=== PATIENT | male | born 1940 | race Caucasian/White ===

== ENCOUNTER 2019-01-06 15:00 | Outpatient (RCR) | payer MEDICARE, BC ==
[~2019-01-06 15:00] MED LIST: FLEXERIL 1010 MG/TAB PO; INSLANT SQ; NORCO 325 MG-51 TAB PO; NOVOLOG FLEX100 U/ML SQ; RELAFEN 50500 MG/TAB PO; TRICOR 48MG48 MG PO; ZOCOR 20MG20 MG PO
== END 2019-01-13 | disposition still patient (30) ==
LOC: WSC
DX: M17.0 Bilateral primary osteoarthritis of knee (principal)

== ENCOUNTER → 2019-10-29 | Emergency (ER) | payer MEDICARE, BC ==
[~2019-10-29] VITALS: Ht 175.3 cm; Wt 93.2 kg
[2019-10-29 14:43] VITALS: TEMP 97.5
[2019-10-29 15:24] LABS: BASO # 0.1 (0.0-0.2); BASO % 0.4 % (0.0-2.0); EOS # 0.1 (0.0-0.7); EOS % 0.7 % (0-4.0); GRAN # 9.3 (1.4-6.5); GRAN % 79.5 % (42.2-75.2); HEMATOCRIT 44.2 % (42.0-52.0); HEMOGLOBIN 14.5 g/dl (13.5-18.0); LYMPH # 1.5 (1.2-3.4); LYMPH % 12.7 % (20.0-51.0); MEAN CELL VOLUME 95 fl (80.0-100.0); MEAN CORPUSCULAR HEMOGLOBIN 31 pg (27.0-31.0); MEAN CORPUSCULAR HGB CONC 33 g/dl (33.0-37.0); MEAN PLATELET VOLUME 10.3 fl (7.4-10.4); MONO # 0.8 (0.1-0.6); MONO % 6.4 % (1.7-9.3); PLATELET COUNT 213 K/mm3 (130-400); RED BLOOD COUNT 4.67 M/mm3 (4.20-5.60); REDCELL DISTRIBUTION WIDTH-CV 13.2 % (11.5-14.5)
[2019-10-29 15:33] LABS: PROTHROMBIN TIME 11.6 SECONDS (9.7-12.8)
[2019-10-29 15:34] LABS: ALBUMIN 3.9 gm/dL (3.5-5.0); BILIRUBIN,TOTAL 0.5 mg/dL (0.0-1.0); CREATININE, serum 0.78 (0.66-1.25); POTASSIUM 4.3 mmol/L (3.4-5.0); TOTAL PROTEIN 7.1 gm/dL (6.4-8.2)
[2019-10-29 15:44] VITALS: BP 127/77; PULSE 91
[2019-10-29 15:44] LABS: TROPONIN-I 0.014 ng/mL (0.000-0.035)
[2019-10-29 16:56] LABS: COLLECTION METHOD CLEAN CATCH
[2019-10-29 17:02] LABS: PH 6 (5-8); SQUAMOUS EPITHELIAL None Seen /hpf; URINE APPEARANCE Clear; URINE BACTERIA None Seen /hpf; URINE BILIRUBIN Negative (NEGATIVE); URINE BLOOD Negative (NEGATIVE); URINE COLOR Yellow; URINE GLUCOSE Negative (NEGATIVE); URINE KETONE Negative (NEGATIVE); URINE LEUKOCYTE ESTERASE Negative (NEGATIVE); URINE NITRATE Negative (NEGATIVE); URINE PROTEIN(semi-quant) Negative (NEGATIVE); URINE RBC 0-2 /hpf; URINE UROBILINOGEN Negative (NEGATIVE); URINE WBC 0-2 /hpf
== END ==
LOC: COL.ER 14:32
PROVIDERS: Emergency Medicine
DX: S00.03XA Contusion of scalp, initial encounter (principal); E11.649 Type 2 diabetes mellitus with hypoglycemia without coma; Z79.4 Long term (current) use of insulin; Z90.89 Acquired absence of other organs; Z23 Encounter for immunization; W19.XXXA Unspecified fall, initial encounter; Y92.009 Unspecified place in unspecified non-institutional (private) residence as the place of occurrence of the external cause
CPT/HCPCS: J7030

== ENCOUNTER 2019-12-22 09:49 | Inpatient (IN) | payer MEDICARE, BC ==
[~2019-12-22] VITALS: Ht 172.8 cm; Wt 91.9 kg
[~2019-12-22 09:49] MED LIST changes: +ASPIRIN E.C. 8181 MG PO; +BRILINTA90 MG PO; +GLUCOPHAGE500 MG/TAB PO; +GLUCOSAMINE & C1 CA2 PO; +LIPITOR 80MG80 MG PO; +MASON NATURAL2000 IU PO; +MULTIVITAMIN SEN PO
[2020-01-20] VITALS (7 sets, daily range): BP systolic 92–139; BP diastolic 49–67; PULSE 47–67; TEMP 97.3–97.9
[2020-01-20] MEDS ORDERED: EFFIENT10 MG (10:04)
--- NOTE | 2020-01-20 15:00 | NUR ---
PATIENT BACK IN ROOM 328 POST OP LTK. A&O. NOTED HYPOTENSION IN MID 90'S SYSTOLIC AND LOW 50'S DIASTOLIC. ALL OTHER VSS. DENIES PAIN IN LLE. PATIENT IS UNABLE TO MOVE BLE AT THIS TIME. LTK DRESSING IS CD&I WITH BULKY ACEWRAP AND ICE PACK INPLACE. TEDS TO RLE. SCD'S TO BLE. POSITIVE PEDAL PULSES TO BLE. HEAD TO TOE ASSESSMENT WNL. NO C/O N/V. LIQUIDS AT BEDSIDE. IV FLUIDS INFUSING INTO LEFT FORARM IV. AT BEDSIDE. ORIENTED TO ROOM. CALL LIGHT IN REACH. NO OTHER NEEDS AT THIS TIME.
--- NOTE | 2020-01-20 20:00 | NUR ---
Pt ambulates in hallway to joint nurses station, becomes dizzy and was wheeled back to his room on rolling walker with seat. Assisted to bed with one staff and gait belt. Is alert and oriented x4. IVF infusing to left forearm without problem.
--- NOTE | 2020-01-20 20:15 | NUR ---
Takes HS meds including Oxycodone 10mg po for pain to left knee.
--- NOTE | 2020-01-20 21:30 | NUR ---
Pt assisted to BR with walker and gait belt and one assist. [place] like he needed to have a BM, did urinate on the floor of his room when getting up. Pt unsuccessful with BM and assisted back to bed.
--- NOTE | 2020-01-20 22:15 | NUR ---
Medicated with Tramadol 50mg po for pain to left knee.
--- NOTE | 2020-01-20 22:30 | NUR ---
Pt calls for help changing bed, had urinated in bed and stated "everyone was laughing out there and didn't want to help me". Assisted with changing linens by staff and re-oriented at this time.
[2020-01-21] VITALS (7 sets, daily range): BP systolic 119–158; BP diastolic 55–81; PULSE 87–121; TEMP 97.5–99.1
--- NOTE | 2020-01-21 00:30 | NUR ---
Pt using urinal at bedside, voids 400cc without problem.
--- NOTE | 2020-01-21 03:10 | NUR ---
PT SITS AT SIDE OF BED, WANTS TO USE THE BATHROOM, UNABLE TO BEAR WT FOR LONG PERIOD OF TIME. ASSISTED TO BED WITH 2 STAFF. USES URINAL IN BED.
--- NOTE | 2020-01-21 05:00 | NUR ---
Has been using urinal at bedside. Scheduled pain meds given.
--- NOTE | 2020-01-21 07:14 | NUR ---
PT RESTING IN BED. DR. READ ROUNDED AND PLAN ON DC TOMMOROW. DRESSING TO LEFT KNEE CDI. ICE AND WATER REFRESHED PER PT REQUEST. BREAKFAST TRAY GIVEN.
[2020-01-21 07:28] LABS: HEMATOCRIT 40.1 % (42.0-52.0); HEMOGLOBIN 13.3 g/dl (13.5-18.0)
--- NOTE | 2020-01-21 09:31 | NUR ---
PT RESTNG IN BED. TOLERATING PO INTAKE WELL. LUNGS CTA, BOWEL SOUNDS PRESENT. DRESSING TO LEFT KNEE CDI WITH VERNELL WRAP OVER DRESSING. AT BEDSIDE.
--- NOTE | 2020-01-21 15:22 | NUR ---
SW met with the patient and his to discuss discharge plan. The patient lives in [place] with his , Reba (ph#[phone]), and son. He reports independence with ADLs and has a rolaider, walker, cane, and crutches. The patient's PCP is Dr. Maria Teresa Rodriguez and he receives his medications at [facility]. He reports no difficulties obtaining his meds. The patient has a Living Will in [facility]. The patient states that he does have a DPOA-HC and that is daughter, Mayte Marin (ph#[phone]), is his DPOA-HC. The patient plans to return home with his and receive outpatient PT at [facility] upon discharge. No additional needs at this time.
--- NOTE | 2020-01-22 01:00 | NUR ---
Pt was returning from bathroom, became dizzy and had vagal episode. PCT was able to place pt in the seat of his rolling walker. Assisted to bed with 2 staff. Pt had been in the bathroom trying to have a BM prior to episode. SS=811. Pt rouses easily once in bed.
[2020-01-22 03:24] VITALS: BP 158/67; PULSE 108; TEMP 97.5
--- NOTE | 2020-01-22 06:00 | NUR ---
NO FURTHER EPISODES OF WEAKNESS. DENIES NEED FOR PAIN MEDS AT THIS TIME.
[2020-01-22 07:38] VITALS: BP 146/76; PULSE 91; TEMP 98.9
--- NOTE | 2020-01-22 08:50 | NUR ---
Patient in bed, spouse at bedside. States upset stomach, feels distended; passing gas, no BM yet. Milk of mag given per orders. Aquacel to left knee is CDI. States pain to left knee /, medications given per orders. Philippe hose and SCDs to BLE. Denies further needs at this time. Will continue to monitor.
--- NOTE | 2020-01-22 10:34 | NUR ---
Contactdonovan ESCOBEDO per Dr. Luis, patient will need placement for discharge.
[2020-01-22 11:16] VITALS: BP 168/74; PULSE 94; TEMP 97.7
--- NOTE | 2020-01-22 11:21 | NUR ---
Dr. Luis in to see patient.
--- NOTE | 2020-01-22 11:37 | NUR ---
The patient may be needing post acute rehab. Public Relations Analyst met with the patient and the patient's to discuss Medicare.gov's list of post acute rehab. The first choice is [facility] and second choice is [facility]. Referrals sent. Will continue to monitor.
--- NOTE | 2020-01-22 12:15 | NUR ---
PT in with patient.
--- NOTE | 2020-01-22 12:33 | NUR ---
Rayna from [facility] reports they can accept the patient for post acute rehab.
[2020-01-22] MEDS ORDERED: XARELTO10 MG PO (13:43)
[2020-01-22] MEDS ORDERED: SENOKOT S 50 MG1 TAB PO (13:44)
[2020-01-22] MEDS ORDERED: NORCO 325 MG-7.1 TAB PO (13:44)
[2020-01-22] MEDS ORDERED: ULTRAM 50MG TAB50 MG PO (13:44)
--- NOTE | 2020-01-22 14:40 | NUR ---
Contacted Dr. Luis, patient ambulated <100 ft with Pt. Would like to discharge home.
--- NOTE | 2020-01-22 15:21 | NUR ---
The patient began doing well with physical therapy and Dr. Luis released him to be discharge home today, 01/21. There are no additional needs at this time.
--- NOTE | 2020-01-22 15:30 | NUR ---
Discharge education provided to patient and spouse. Educated on dressing and signs and symptoms of infection. Educated on when to call provider and follow up appointment. Educated on all new meds. All questions answered. Denies further needs at this time. Patient dressed independently. INT discontinued, catheter tip intact. Patient out by wheelchair with surgical staff and spouse.
== END 2020-01-22 15:30 | disposition home or self-care (01) | DRG 470 ==
LOC: JCC 01-20 09:11
PROVIDERS: ADMIT Orthopaedic Surgery
PROC: 0SRD0J9 Replacement of Left Knee Joint with Synthetic Substitute, Cemented, Open Approach (ICD-10-PCS; principal; 2020-01-20 13:30)
DX: M17.12 Unilateral primary osteoarthritis, left knee (principal)
CPT/HCPCS: A9284; C1776; J0690; J1815; J2405; J2704; J7030

== ENCOUNTER 2020-01-25 14:53 | Emergency (ER) | payer MEDICARE, BC ==
[~2020-01-25] VITALS: Ht 172.7 cm; Wt 91.4 kg
[~2020-01-25 14:53] MED LIST changes: +EFFIENT10 MG; +NORCO 325 MG-7.1 TAB PO; +SENOKOT S 50 MG1 TAB PO; +ULTRAM 50MG TAB50 MG PO; +XARELTO10 MG PO
[2020-01-25 15:05] VITALS: BP 138/78; TEMP 98.5
[2020-01-25 15:54] LABS: BASO # 0.1 (0.0-0.2); BASO % 0.5 % (0.0-2.0); EOS # 0.4 (0.0-0.7); EOS % 4.4 % (0-4.0); GRAN # 6.8 (1.4-6.5); GRAN % 70.3 % (42.2-75.2); HEMATOCRIT 32.2 % (42.0-52.0); HEMOGLOBIN 10.8 g/dl (13.5-18.0); LYMPH # 1.4 (1.2-3.4); LYMPH % 14.5 % (20.0-51.0); MEAN CELL VOLUME 93 fl (80.0-100.0); MEAN CORPUSCULAR HEMOGLOBIN 31 pg (27.0-31.0); MEAN CORPUSCULAR HGB CONC 34 g/dl (33.0-37.0); MEAN PLATELET VOLUME 10.2 fl (7.4-10.4); PLATELET COUNT 203 K/mm3 (130-400); RED BLOOD COUNT 3.47 M/mm3 (4.20-5.60); REDCELL DISTRIBUTION WIDTH-CV 13.5 % (11.5-14.5)
[2020-01-25 16:03] LABS: INR 1.4 (0.8-3.0); PROTHROMBIN TIME 15.6 SECONDS (9.7-12.8)
[2020-01-25 16:06] LABS: PARTIAL THROMBOPLASTIN TIME 35.7 SECONDS (26.0-37.0)
[2020-01-25 16:10] LABS: ALBUMIN 3.3 gm/dL (3.5-5.0); BILIRUBIN,TOTAL 1.8 mg/dL (0.0-1.0); CALCIUM 8.4 mg/dL (8.4-10.2); CREATININE, serum 0.79 (0.66-1.25); POTASSIUM 3.8 mmol/L (3.4-5.0); TOTAL PROTEIN 6.7 gm/dL (6.4-8.2)
[2020-01-25 16:21] LABS: TROPONIN-I 0.013 ng/mL (0.000-0.035)
[2020-01-25] MEDS ORDERED: ENEMEEZ PLUS MIN5 ML RC (16:59)
[2020-01-25 17:57] VITALS: PULSE 95
== END 2020-01-25 17:57 | disposition home or self-care (01) ==
LOC: COL.ER 14:53
PROVIDERS: Emergency Medicine
DX: R06.00 Dyspnea, unspecified (principal); R06.02 Shortness of breath; E11.9 Type 2 diabetes mellitus without complications; I10 Essential (primary) hypertension; I25.10 Atherosclerotic heart disease of native coronary artery without angina pectoris; E78.5 Hyperlipidemia, unspecified; Z79.01 Long term (current) use of anticoagulants; Z96.652 Presence of left artificial knee joint
CPT/HCPCS: Q9967

== ENCOUNTER 2020-02-11 10:10 | Day surgery (SDC) | payer MEDICARE, BC ==
[2020-02-11] VITALS (579 sets, daily range): BP systolic 99–161; BP diastolic 69–85; PULSE 80–88; TEMP 97.7–98.2; O2SAT 88–100
[~2020-02-11] VITALS: Ht 172.8 cm; Wt 87.7 kg
[~2020-02-11 10:10] MED LIST changes: +ENEMEEZ PLUS MIN5 ML RC
[2020-02-11 11:22] LABS: HEMATOCRIT 38.3 % (42.0-52.0); HEMOGLOBIN 12.4 g/dl (13.5-18.0); MEAN CELL VOLUME 95 fl (80.0-100.0); MEAN CORPUSCULAR HEMOGLOBIN 31 pg (27.0-31.0); MEAN CORPUSCULAR HGB CONC 32 g/dl (33.0-37.0); MEAN PLATELET VOLUME 9.5 fl (7.4-10.4); PLATELET COUNT 355 K/mm3 (130-400); RED BLOOD COUNT 4.02 M/mm3 (4.20-5.60); REDCELL DISTRIBUTION WIDTH-CV 14.2 % (11.5-14.5)
[2020-02-11 11:28] LABS: INR 1.2 (0.8-3.0); PROTHROMBIN TIME 12.9 SECONDS (9.7-12.8)
[2020-02-11 11:32] LABS: CALCIUM 8.9 mg/dL (8.4-10.2); CREATININE, serum 0.72 (0.66-1.25); POTASSIUM 4.3 mmol/L (3.4-5.0)
[2020-02-11] MEDS ORDERED: EFFIENT10 MG PO (11:51)
[2020-02-11] MEDS ORDERED: GLUCOPHAGE XR500 M1 PO (11:53)
[2020-02-11] MEDS ORDERED: XARELTO10 MG PO (12:08)
[2020-02-11] MEDS ORDERED: ASPIRIN 81M81 MG/TA2 PO (12:09)
--- NOTE | 2020-02-11 13:10 | NUR ---
SEE MERGE DOCUMENTATION FOR MEDICATION ADMINISTRATION TIMES AND INTRA/POST PROCEDURE SEDATION ASSESSMENTS. RIGHT RADIAL BARBEAU TEST POSITIVE.
--- NOTE | 2020-02-11 13:47 | NUR ---
Report received from Jaci Broussard pt to be admitted post intervention.
--- NOTE | 2020-02-11 14:20 | NUR ---
Patient arrives to ICU 1 via bed from with RN at side. Awake and drowsy. Monitors applied. Cath site to Right Radial CDI with TR band in place, good pulses and color noted. Patient denies c\\o pain, does state "I think I'm even breathing easier than I was". to room and orient both of them to ICU and visiting hours.
--- NOTE | 2020-02-11 20:06 | NUR ---
Report given to Giovanna MARISCAL
--- NOTE | 2020-02-11 22:52 | NUR ---
2 CC'S OF AIR REMOVED FROM TR BAND, NO BLEEDING OR SWELLING NOTED. WILL CONTINUE TO MONITOR.
[2020-02-12] VITALS (594 sets, daily range): BP systolic 143–155; BP diastolic 75–87; PULSE 83–89; TEMP 98.6–99; O2SAT 78–100
--- NOTE | 2020-02-12 02:45 | NUR ---
3 CC'S OF AIR REMOVED FROM TR BAND, NO BLEEDING OR HEMATOMA NOTED. WILL CONTINUE TO MONITOR.
--- NOTE | 2020-02-12 03:47 | NUR ---
TR BAND OFF AT THIS TIME. BANDAID PUT ON IN PLACE. NO BLEEDING OR HEMATOMA NOTED. WILL CONTINUE TO MONITOR.
[2020-02-12 05:27] LABS: BASO # 0.1 (0.0-0.2); BASO % 0.6 % (0.0-2.0); EOS # 0.3 (0.0-0.7); EOS % 4.2 % (0-4.0); GRAN # 6.2 (1.4-6.5); GRAN % 79.3 % (42.2-75.2); HEMOGLOBIN 11.2 g/dl (13.5-18.0); LYMPH # 0.7 (1.2-3.4); LYMPH % 9.5 % (20.0-51.0); MEAN CELL VOLUME 95 fl (80.0-100.0); MEAN CORPUSCULAR HEMOGLOBIN 31 pg (27.0-31.0); MEAN CORPUSCULAR HGB CONC 32 g/dl (33.0-37.0); MEAN PLATELET VOLUME 9.5 fl (7.4-10.4); MONO # 0.5 (0.1-0.6); PLATELET COUNT 317 K/mm3 (130-400); RED BLOOD COUNT 3.63 M/mm3 (4.20-5.60)
[2020-02-12 05:29] LABS: HEMATOCRIT 34.6 % (42.0-52.0)
[2020-02-12 05:39] LABS: CALCIUM 8.5 mg/dL (8.4-10.2); CREATININE, serum 0.63 (0.66-1.25); POTASSIUM 3.8 mmol/L (3.4-5.0)
[2020-02-12] MEDS ORDERED: NORVASC 5MG5 MG/TAB PO (09:57)
--- NOTE | 2020-02-12 10:30 | NUR ---
Dr. Soheila pascual at this time. DC orders as entered CPOE.
--- NOTE | 2020-02-12 11:02 | NUR ---
DC education provided to patient and who verbalize understanding. INT IV is discontinued. Patient dresses in own clothes.
--- NOTE | 2020-02-12 11:20 | NUR ---
Patient discharged via WC to private vehicle. Care completed.
== END 2020-02-12 11:20 | disposition home or self-care (01) ==
LOC: COL.CAR 10:10 → ICU 14:06 → COL.CAR 02-12 11:20
PROVIDERS: Internal Medicine Cardiovascular Disease
DX: T82.855A Stenosis of coronary artery stent, initial encounter (principal); I25.110 Atherosclerotic heart disease of native coronary artery with unstable angina pectoris; I34.0 Nonrheumatic mitral (valve) insufficiency; E11.319 Type 2 diabetes mellitus with unspecified diabetic retinopathy without macular edema; E78.5 Hyperlipidemia, unspecified; K25.7 Chronic gastric ulcer without hemorrhage or perforation; N40.0 Benign prostatic hyperplasia without lower urinary tract symptoms; Z86.718 Personal history of other venous thrombosis and embolism; Z79.899 Other long term (current) drug therapy; Z79.82 Long term (current) use of aspirin; Z79.4 Long term (current) use of insulin
CPT/HCPCS: OP; C9600; J0583; J1644; J1815; J2250; J3010; Q9967

== ENCOUNTER 2020-08-05 10:20 | Inpatient (IN) | payer MEDICARE, BC ==
[~2020-08-05] VITALS: Ht 172.7 cm; Wt 93.3 kg
[~2020-08-05 10:20] MED LIST changes: +ASPIRIN 81M81 MG/TA2 PO; +EFFIENT10 MG PO; +GLUCOPHAGE XR500 M1 PO; +NORVASC 5MG5 MG/TAB PO
[2020-10-10] VITALS (12 sets, daily range): BP systolic 102–132; BP diastolic 47–69; PULSE 62–76; TEMP 97.1–97.9
[2020-10-10] MEDS ORDERED: NORVASC 5MG5 MG/TAB PO (06:43)
[2020-10-10] MEDS ORDERED: VITAMIN D31000 I1 PO (06:48)
[2020-10-10] MEDS ORDERED: LIPITOR 80MG80 MG PO (06:51)
--- NOTE | 2020-10-10 06:54 | NUR ---
TO RM AT 0545- CALL LIGHT IN REACH AT BEDSIDE. JENNIFER CRIBBING SETTER INTO TALK WITH PATIENT
--- NOTE | 2020-10-10 10:53 | NUR ---
Patient post op to room 329. Report from Francoise. Patient awake & alert, his attentive at bedside. Right knee dressing Cdi. Feeling has returned, he can wiggle his toes. +2 pulses. We dicussed pain regiment. Philippe to LLE. Scds ble. Ivf per orders to Lhsaroj. Vss on o2.
--- NOTE | 2020-10-10 19:44 | NUR ---
Patient resting in bed. attentive at bedside. Pain being manged with PO pain medications per orders. Patient did well with dinner. Denies nausea. He has been using his home accucheck machine, blood sugars stable. Novolog has been given with meals per orders. Patient has been up to bathroom x3 and voided without difficulty. Walker & gaitbelt used. Right knee occlusive dressing remains intact. Ice pack to knee. Scds. elevated with pillow. Report to erikaurse
--- NOTE | 2020-10-10 21:00 | NUR ---
Pt. sitting up in bed. Pt. is A&OX3, assessment complete. IV to lt. hand patent, IV fluids infusing per orders. Dressing to rt. knee CDI. Pt. reported pain at a 5 on pain scale, gave pain meds per orders. Pt. denies further needs, call light within reach.
[2020-10-11 06:01] VITALS: BP 135/61; PULSE 69; TEMP 97
[2020-10-11 07:24] LABS: HEMATOCRIT 38.5 % (42.0-52.0); HEMOGLOBIN 12.8 g/dl (13.5-18.0)
[2020-10-11 08:33] VITALS: BP 165/73; PULSE 91; TEMP 99
--- NOTE | 2020-10-11 09:23 | NUR ---
PT RESTING IN BED. UP TO BR THIS AM, VOIDED AND RETURNED TO BED. PAIN CONTROLLED WITH PO MEDS. AT BEDSIDE. DRESSING TO RIGHT KNEE CDI. VSS. PLAN ON DISCHARGE HOME TOMMORROW WITH OUT PT THERAPY.
--- NOTE | 2020-10-11 11:09 | NUR ---
Regulatory Auditor attended clinical rounds with the team. After rounds, SW met with the patient and the patient's , Reba to complete intake. The patient lives in [facility] with Reba. The patient has a 4WW and cane. The patient is independent with ADLs but Reba will assist as needed. The patient's PCP is Dr. Rodriguez and patient receives medications from [facility]. The patient does not have advanced directives and was not interested in DPOA-HC form. The patient reports she has had OP PT at [facility] in the past and may be interested in doing that again. SW discussed PT's recommendation of home with home health and provided Medicare.gov's list of agencies. The patient will to decide what she would like to do then inform this SW. *Discharge Disposition at this time: Home (with possible Home Health or OP PT, patient still deciding)
[2020-10-11 11:53] VITALS: BP 145/70; PULSE 88; TEMP 99.3
--- NOTE | 2020-10-11 13:44 | NUR ---
Initial visit; Patient thanked [facility] for looking in on him, offering God's blessings and keeping him in [facility]'s prayers.
[2020-10-11 16:00] VITALS: BP 163/76; PULSE 92; TEMP 98.6
--- NOTE | 2020-10-11 16:40 | NUR ---
Bone Char Puller met with the patient and his , Reba to complete intake. The patient lives with Reba in [facility]. The patient has a cane and walker and receives some assistance with ADLs from Reba, if needed. The patient's PCP is Dr. Rodriguez and patient receives medications from [facility]. The patient does not have advanced directives in the EMR but was interested in DPOA-HC form. Form provided. The patient plans to return home with OP PT. *Discharge disposition: Home with OP PT.
--- NOTE | 2020-10-11 20:20 | NUR ---
Pt. sitting up in bed. Pt. is A&OX3, assessment complete. INT to lt. hand patent. Dressing to rt. knee CDI. Pt. reports pain at a 4 on pain scale, gave 1 vinayak at this time. Pt. denies further needs, call light within reach.
[2020-10-11 20:31] VITALS: BP 166/70; PULSE 94; TEMP 98.3
[2020-10-12 00:45] VITALS: BP 161/75; PULSE 103; TEMP 98
[2020-10-12 04:20] VITALS: BP 157/66; PULSE 100; TEMP 98.8
[2020-10-12 07:28] VITALS: BP 146/61; PULSE 89; TEMP 98.4
--- NOTE | 2020-10-12 08:52 | NUR ---
PT UP TO BATHROOM FOR SHOWER WITH OT. PT C/O PAIN AND INABLITY TO MOVE. OFFERED AND GAVE PO PAIN MEDS. GAVE VERBAL ENCOURAGEMENT. PT WAS NOT RECEPTIVE. DRESSING TO RIGHT KNEE CDI. PLAN ON DISCHARGE LATER THIS PM.
[2020-10-12 11:46] VITALS: BP 149/69; PULSE 96; TEMP 98.8
[2020-10-12] MEDS ORDERED: NORCO 325 MG-7.1 TAB PO (14:09)
[2020-10-12] MEDS ORDERED: ROXICODONE 55 MG/TAB PO (14:11)
[2020-10-12] MEDS ORDERED: SENOKOT S 50 MG1 TAB PO (14:12)
--- NOTE | 2020-10-12 14:59 | NUR ---
discharge instructions reviewed with patient and spouse. Questions solicited and answered. pt left with staff in wheel chair.
== END 2020-10-12 14:40 | disposition home or self-care (01) | DRG 470 ==
LOC: INPTSU 10-10 05:40 → SURG 10-10 07:30
PROVIDERS: ADMIT Orthopaedic Surgery
PROC: 0SRC0J9 Replacement of Right Knee Joint with Synthetic Substitute, Cemented, Open Approach (ICD-10-PCS; principal; 2020-10-10 07:30)
DX: M17.11 Unilateral primary osteoarthritis, right knee (principal); Z20.822 Contact with and (suspected) exposure to COVID-19; Z79.4 Long term (current) use of insulin; Z79.01 Long term (current) use of anticoagulants; Z79.82 Long term (current) use of aspirin; Z79.899 Other long term (current) drug therapy
CPT/HCPCS: A9284; C1713; C1776; J0690; J1815; J1885; J2405; J2704; J3010; J7030; J7120

== ENCOUNTER → 2020-09-08 | Outpatient (CLI) | payer MEDICARE, BC ==
[~2020-09-08] MED LIST changes: +DIPROLENE OI 15GM TOP; +NATURAL IRON65 MG PO; +ROXICODONE 55 MG/TAB PO; +VITAMIN D31000 I1 PO
--- NOTE | 2020-09-08 15:36 | NUR ---
Called Dr. Rodriguez office with suggestions on diabetes medication dose changes. No answer, left message on nurse's VM with review of suggestions. Offered that Dr. Rodriguez should review suggestions and then follow up with patient with plan.
--- NOTE | 2020-09-08 16:07 | NUR ---
Received call back from RN with Dr. Rodriguez, and she affirmed that she will forward message to doctor to review and advise. Change of order request faxed to office.
== END ==
LOC: DIA.ED 12:43
DX: E11.9 Type 2 diabetes mellitus without complications (principal); Z79.84 Long term (current) use of oral hypoglycemic drugs
CPT/HCPCS: G0108

== ENCOUNTER 2020-12-06 08:25 | Day surgery (SDC) | payer MEDICARE, BC ==
[~2020-12-06] VITALS: Ht 172.8 cm; Wt 86.1 kg
[2020-12-06] VITALS (14 sets, daily range): BP systolic 107–146; BP diastolic 62–75; PULSE 54–69; TEMP 98.1
[~2020-12-06 08:25] MED LIST changes: -DIPROLENE OI 15GM TOP; -NATURAL IRON65 MG PO
[2020-12-06 09:22] LABS: HEMATOCRIT 39.4 % (42.0-52.0); HEMOGLOBIN 12.9 g/dl (13.5-18.0); MEAN CELL VOLUME 94 fl (80.0-100.0); MEAN CORPUSCULAR HEMOGLOBIN 31 pg (27.0-31.0); MEAN CORPUSCULAR HGB CONC 33 g/dl (33.0-37.0); MEAN PLATELET VOLUME 10.4 fl (7.4-10.4); PLATELET COUNT 184 K/mm3 (130-400); RED BLOOD COUNT 4.19 M/mm3 (4.20-5.60); REDCELL DISTRIBUTION WIDTH-CV 14.3 % (11.5-14.5)
[2020-12-06 09:32] LABS: CALCIUM 8.7 mg/dL (8.4-10.2); CREATININE, serum 0.63 (0.66-1.25); POTASSIUM 4.3 mmol/L (3.4-5.0)
[2020-12-06 09:41] LABS: PROTHROMBIN TIME 11.6 SECONDS (9.7-12.8)
[2020-12-06 09:43] LABS: PARTIAL THROMBOPLASTIN TIME 26.5 SECONDS (26.0-37.0)
[2020-12-06] MEDS ORDERED: NATURAL IRON65 MG PO (09:43)
[2020-12-06] MEDS ORDERED: DIPROLENE OI 15GM TOP (09:46)
--- NOTE | 2020-12-06 12:28 | NUR ---
DAVEY Walker in Program Attendant called at 1213 to reassess pt's arm due to concern for hematoma to forearm. She calls DAVEY Hammonds to assist. He applies inflated manual pressure to forearm, as well as inflated blood pressure cuff. Attempted to call Dr. Parnell, who is currently in procedure, request made to have him return call.
--- NOTE | 2020-12-06 12:37 | NUR ---
Hematoma decreased in dago with pressure applied by DAVEY Hammonds. He wraps forearm in eris wrap. Pt expresses decreased discomfort to forearm. returns to bedside from cafeteria. Call light in reach.
--- NOTE | 2020-12-06 12:46 | NUR ---
Dr Parnell in to see pt. laboratory courier RNs return to place second TR band.
--- NOTE | 2020-12-06 12:57 | NUR ---
1215 received call from Jun MARISCAL that patient developed a hematoma distal from puncture site. This RN to room to inspect arm, call to Cassius MARISCAL for assist. Manual pressure applied mid forearm and hematoma outlined. Hematoma reduced with manual pressure and pressure applied with manual blood pressure cuff. No bleeding or edema noted around TR band. Cassius MARISCAL reduces BP cuff and hematoma is reducing in size, VERNELL wrap applied. Dr. Parnell notified and will down to see patient. 1253 Dr. Parnell requests additional TR band be applied at wrist. Applie by Cassius MARISCAL with 6ml of air and keep VERNELL wrap applied and continue to observe. Pain and pressure is improved after interventions. Jun MARISCAL aware of all interventions.
--- NOTE | 2020-12-06 16:20 | NUR ---
DC instructions reviewed at length with pt including return precautions. Both express understanding. Rt forearm remains soft to palpation with discomfort improved since hematoma first occured. Deshaun wrap remains in place to rt forearm, with instructions for home use this evening, including instructions for removal or adjustment of wrap and prevention of swelling in hand discussed. Cap refill to fingers of rt hand remains brisk, hand pink and warm to touch prior to departure. Air has been removed from TR bands in 2ml increments with no bleeding or reoccurance of hematoma to forearm. Rt radial puncture site dressed with folded 2x2 gauze and bandaid. IV removed with catheter intact, and bleeding controlled at site. Pt is assisted out to 's car by wheelchair with personal belongings.
== END 2020-12-06 16:20 | disposition home or self-care (01) ==
LOC: COL.CAR 08:25
PROVIDERS: Internal Medicine Cardiovascular Disease
DX: I25.110 Atherosclerotic heart disease of native coronary artery with unstable angina pectoris (principal); I82.409 Acute embolism and thrombosis of unspecified deep veins of unspecified lower extremity; I87.2 Venous insufficiency (chronic) (peripheral); I83.90 Asymptomatic varicose veins of unspecified lower extremity; I08.0 Rheumatic disorders of both mitral and aortic valves; M47.892 Other spondylosis, cervical region; M17.0 Bilateral primary osteoarthritis of knee; K25.7 Chronic gastric ulcer without hemorrhage or perforation; E11.319 Type 2 diabetes mellitus with unspecified diabetic retinopathy without macular edema; E78.2 Mixed hyperlipidemia; E11.9 Type 2 diabetes mellitus without complications; Z90.89 Acquired absence of other organs; Z79.82 Long term (current) use of aspirin; Z79.899 Other long term (current) drug therapy; Z79.4 Long term (current) use of insulin; Z95.1 Presence of aortocoronary bypass graft; Z80.9 Family history of malignant neoplasm, unspecified
CPT/HCPCS: J1644; J2250; J3010; Q9967

== ENCOUNTER 2020-12-06 19:27 | Emergency (ER) | payer MEDICARE, BC ==
[~2020-12-06] VITALS: Ht 172.7 cm; Wt 86.8 kg
[~2020-12-06 19:27] MED LIST changes: +DIPROLENE OI 15GM TOP; +NATURAL IRON65 MG PO
[2020-12-06 20:01] VITALS: TEMP 98.1
[2020-12-06 20:47] VITALS: BP 118/71; PULSE 74
== END 2020-12-06 21:10 | disposition home or self-care (01) ==
LOC: COL.ER 19:27
DX: S50.12XA Contusion of left forearm, initial encounter (principal); I25.10 Atherosclerotic heart disease of native coronary artery without angina pectoris; E11.9 Type 2 diabetes mellitus without complications; I10 Essential (primary) hypertension; Z98.61 Coronary angioplasty status; Z79.82 Long term (current) use of aspirin; Z79.4 Long term (current) use of insulin; Z79.899 Other long term (current) drug therapy; X58.XXXA Exposure to other specified factors, initial encounter

== ENCOUNTER 2023-03-26 12:50 | Emergency (ER) | payer MEDICARE, BC ==
[~2023-03-26] VITALS: Ht 172.7 cm; Wt 71.8 kg
[2023-03-26 12:58] VITALS: TEMP 97.2
[2023-03-26 13:17] LABS: BASO # 0.1 K/mm3 (0.0-0.2); BASO % 0.6 % (0.0-2.0); EOS # 0.1 K/mm3 (0.0-0.7); EOS % 0.6 % (0.0-4.0); GRAN # 6.6 K/mm3 (1.4-6.5); GRAN % 76.4 % (42.2-75.2); HEMATOCRIT 46.8 % (42.0-52.0); HEMOGLOBIN 15.8 g/dl (13.5-18.0); LYMPH # 1.3 K/mm3 (1.2-3.4); LYMPH % 15.2 % (20.0-51.0); MEAN CELL VOLUME 95 fl (80.0-100.0); MEAN CORPUSCULAR HEMOGLOBIN 32 pg (27-31); MEAN CORPUSCULAR HGB CONC 34 g/dl (33.0-37.0); MEAN PLATELET VOLUME 10.7 fl (7.4-10.4); MONO # 0.6 K/mm3 (0.1-0.6); MONO % 6.9 % (1.7-9.3); PLATELET COUNT 199 K/mm3 (130-400); RED BLOOD COUNT 4.91 M/mm3 (4.20-5.60); REDCELL DISTRIBUTION WIDTH-CV 12.7 % (11.5-14.5)
[2023-03-26 13:24] LABS: PROTHROMBIN TIME 10.7 SECONDS (9.7-12.8)
[2023-03-26 13:36] LABS: ALANINE AMINOTRANSFERASE 61 U/L (0-55); ALBUMIN 3.5 gm/dL (3.4-4.8); ALKALINE PHOSPHATASE 66 U/L (40-150); ANION GAP 14 mmol/L (7-16); AST,SGOT 44 U/L (5-34); BLOOD UREA NITROGEN 14 mg/dL (8-26); CALCIUM 9.6 mg/dL (8.4-10.2); CARBON DIOXIDE 23 mmol/L (23-31); CHLORIDE 97 mmol/L (98-107); CREATININE, serum 1.13 mg/dL (0.72-1.25); POTASSIUM 4.6 mmol/L (3.5-4.5); SODIUM 134 mmol/L (136-145); TOTAL PROTEIN 6.9 gm/dL (6.2-8.1)
[2023-03-26 13:39] LABS: GLUCOSE 482 mg/dL (70-99)
[2023-03-26 13:56] LABS: TSH w REFLEX 1.557 uIU/mL (0.350-4.940)
[2023-03-26 13:58] LABS: TROPONIN-I < 0.010 ng/mL (0.00-0.033)
[2023-03-26 15:44] VITALS: BP 109/97; PULSE 65
== END 2023-03-26 15:45 | disposition home or self-care (01) ==
LOC: COL.ER 12:50
PROVIDERS: Family Medicine
DX: E11.618 Type 2 diabetes mellitus with other diabetic arthropathy (principal); I44.0 Atrioventricular block, first degree; Z79.4 Long term (current) use of insulin
CPT/HCPCS: J1815; J7030